=== PATIENT | female | born 1965 | race Hispanic/Latino ===

== ENCOUNTER 2021-09-07 06:44 | Day surgery (SDC) | payer MEDICAID ==
[2021-09-05 09:51] LABS: BASOPHILS % (AUTO) 0.8 % (0.0-5.0); EOSINOPHILS % (AUTO) 2.4 % (0.0-8.0); HEMATOCRIT 41.5 % (36-48); LYMPHOCYTES % (AUTO) 33.1 % (21.0-51.0); MEAN CORPUSCULAR HEMOGLOBIN 29.8 pg (27.0-33.0); MONOCYTES % (AUTO) 5.5 % (3.0-13.0); NEUTROPHILS % (AUTO) 57.9 % (40.0-77.0); PLATELET COUNT (AUTO) 304 K/uL (130-400); RED BLOOD CELL COUNT(AUTO) 4.46 MIL/uL (4.00-5.50); RED CELL DISTRIBUTION WIDTH 12.9 % (11.0-15.5)
[2021-09-05 09:57] LABS: APPEARANCE,URINE Clear (CLEAR); BILIRUBIN,URINE Negative (NEGATIVE); COLOR,URINE Yellow (YELLOW); GLUCOSE, URINE (UA) >=1000 mg/dL (NEGATIVE); KETONES,URINE Negative (NEGATIVE); LEUKOCYTE ESTERASE ,URINE Negative (NEGATIVE); NITRATE,URINE Negative (NEGATIVE); OCCULT BLOOD,URINE Negative (NEGATIVE); PROTEIN,URINE Negative (NEGATIVE); UROBILINOGEN,URINE 0.2 mg/dL (0.2-1.0)
[2021-09-05 10:00] LABS: INR 0.94 (0.85-1.15); PROTHROMBIN TIME 10.3 SEC (9.6-11.6)
[2021-09-05 10:01] LABS: CREATININE 0.7 mg/dL (0.5-1.5); POTASSIUM 4.6 mmol/L (3.5-5.1)
[2021-09-05 10:02] LABS: PARTIAL THROMBOPLASTIN TIME 28.8 SEC (26.3-35.5)
[2021-09-05 10:06] LABS: BACTERIA,URINE Rare /HPF (None Seen); RBC,URINE 0-1 /HPF (0-1); SQUAMOUS EPITHELIAL CELL,UR Rare /HPF (0-2); WBC,URINE 0-1 /HPF (0-1)
[2021-09-06 11:39] VITALS: BP 112/63
[~2021-09-07] VITALS: Ht 167.6 cm; Wt 83.6 kg
[2021-09-07] VITALS (11 sets, daily range): BP systolic 108–149; BP diastolic 60–70
[~2021-09-07 06:44] MED LIST: ARIP5TAB56 PO; ASPI-1005 PO; ATOR20TA65 PO; CYAN-35 PO; DULO30CA52 PO; EMPA1TAB7 PO; FLUT16H NASAL; INSU100I24 SQ; LEVE10006 PO; LEVE500T19 PO; LOSA25TA41 PO; METO-408 PO; MONT-39 PO; NITR0.4T50 SL; PHEN100C9 PO; TICA90TA PO; TIMO1DRO OU; TRAV2.5D OU; ZONI100C19 PO; victoza SQ
[2021-09-07] MEDS ORDERED: 0.9%NACL 1000ML 1,000 ML IV ONE (07:21)
[2021-09-07] MEDS ORDERED: IOHEXOL 350 MG/ML 100ML INFUS..BTL IV ONE (07:22)
[2021-09-07] MEDS ORDERED: LIDOCAINE HCL 400MG/20ML VIAL ONE (07:22)
[2021-09-07] MEDS ORDERED: BIVALIRUDIN 250 MG/VIAL IV ONE (07:22)
[2021-09-07] MEDS ORDERED: NITROGLYCERIN 2 MG VIAL IV ONE (07:22)
[2021-09-07] MEDS ORDERED: HEPARIN 10,000 UNIT/10ML (1,000 UNIT/ML) VIAL ONE (07:22)
[2021-09-07] MEDS ORDERED: IOHEXOL-350 50ML VIAL IV ONE (07:23)
[2021-09-07] MEDS ORDERED: SOLU-MEDROL 125MG VIAL ONE (07:48)
[2021-09-07] MEDS ORDERED: DiphenhydrAMINE HCL 50 MG/ML VIAL ONE (08:03)
[2021-09-07] MEDS ORDERED: FENTANYL CITRATE PF 50 MCG/1 ML 2ML VIAL ONE (08:16)
[2021-09-07] MEDS ORDERED: MIDAZOLAM HCL 1 MG/ML 2ML VIAL ONE (08:16)
[2021-09-07] MEDS ORDERED: DEXTROSE 50%-WATER 50 ML DISP.SYRIN IV PRN (09:30)
[2021-09-07] MEDS ORDERED: 0.9%NACL 1000ML 500 ML IV SCH (09:30)
[2021-09-07] MEDS ORDERED: GLUCAGON 1MG KIT 1 MG ML IM PRN (09:30)
== END 2021-09-07 15:31 | disposition home or self-care (01) ==
LOC: DAH 06:44
PROVIDERS: ATTEND Student in an Organized Health Care Education/Training Program
DX: I25.110 Atherosclerotic heart disease of native coronary artery with unstable angina pectoris (principal); I11.0 Hypertensive heart disease with heart failure; I50.32 Chronic diastolic (congestive) heart failure; E11.9 Type 2 diabetes mellitus without complications; E78.5 Hyperlipidemia, unspecified; K21.9 Gastro-esophageal reflux disease without esophagitis; Z79.82 Long term (current) use of aspirin; I25.2 Old myocardial infarction; E66.9 Obesity, unspecified; Z86.73 Personal history of transient ischemic attack (TIA), and cerebral infarction without residual deficits; Z79.899 Other long term (current) drug therapy; Z98.890 Other specified postprocedural states; Z90.49 Acquired absence of other specified parts of digestive tract; Z88.3 Allergy status to other anti-infective agents; Z79.01 Long term (current) use of anticoagulants; Z68.30 Body mass index [BMI] 30.0-30.9, adult; I00 Rheumatic fever without heart involvement
CPT/HCPCS: 36415; 71045; 80048; 81001; 82948 ×2; 85025; 85610; 85730; 93005; 93458; A4215; A4216; A4221; A4222; A4223 ×3; A4606; A4663; C1760; C1769; C1894 ×2; J1200; J1644; J2250; J2930; J3010; J3490 ×3; J7030; Q9965; Q9967; 99156; 99157; J0583

== ENCOUNTER 2022-07-18 05:56 | Day surgery (SDC) | payer MEDICAID ==
[2022-07-13 14:51] LABS: APPEARANCE,URINE SL CLOUDY (CLEAR); BILIRUBIN,URINE NEGATIVE (NEGATIVE); COLOR,URINE YELLOW (YELLOW); GLUCOSE, URINE (UA) >=1000 mg/dL (NEGATIVE); KETONES,URINE NEGATIVE (NEGATIVE); LEUKOCYTE ESTERASE ,URINE SMALL (NEGATIVE); NITRATE,URINE NEGATIVE (NEGATIVE); OCCULT BLOOD,URINE NEGATIVE (NEGATIVE); PH,URINE 5.5 (5.0-8.0); PROTEIN,URINE NEGATIVE (NEGATIVE); UROBILINOGEN,URINE 0.2 mg/dL (0.2-1.0)
[2022-07-13 14:56] LABS: BACTERIA,URINE Few /HPF (None Seen); RBC,URINE None Seen /HPF (0-1)
[2022-07-13 15:30] LABS: BASOPHILS % (AUTO) 0.6 % (0.0-5.0); EOSINOPHILS % (AUTO) 2.2 % (0.0-8.0); HEMATOCRIT 42.4 % (36-48); LYMPHOCYTES % (AUTO) 34.9 % (21.0-51.0); MEAN CORPUSCULAR HEMOGLOBIN 30.5 pg (27.0-33.0); MEAN CORPUSCULAR HGB CONC 32.5 g/dL (32.0-36.0); MEAN CORPUSCULAR VOLUME 93.6 fL (79-99); MONOCYTES % (AUTO) 5.7 % (3.0-13.0); NEUTROPHILS % (AUTO) 56.3 % (40.0-77.0); PLATELET COUNT (AUTO) 316 K/uL (130-400); RED BLOOD CELL COUNT(AUTO) 4.53 MIL/uL (4.00-5.50); RED CELL DISTRIBUTION WIDTH 13.4 % (11.0-15.5); WHITE BLOOD COUNT (AUTO) 10.3 K/uL (4.8-10.8)
[2022-07-13 15:40] LABS: CREATININE 0.8 mg/dL (0.5-1.5); POTASSIUM 3.7 mmol/L (3.5-5.1)
[2022-07-13 15:42] LABS: INR 0.93 (0.85-1.15); PROTHROMBIN TIME 9.8 SEC (9.6-11.6)
[2022-07-13 15:44] LABS: PARTIAL THROMBOPLASTIN TIME 28.5 SEC (26.3-35.5)
[2022-07-13 15:55] LABS: B-TYPE NATRIURETIC PEPTIDE 5 pg/mL (0-100)
[2022-07-17 09:39] VITALS: BP 160/67
[~2022-07-18] VITALS: Ht 160 cm; Wt 84.2 kg
[2022-07-18] VITALS (8 sets, daily range): BP systolic 121–139; BP diastolic 55–70
[~2022-07-18 05:56] MED LIST changes: +0.9% NACL 500ML IV.SOLN 500 ML IV SCH; +ALEN70TA80 PO; +AMIT25TA9 PO; +CHOL500050 PO; -DULO30CA52 PO; -FLUT16H NASAL; -INSU100I24 SQ; +INSU300I SQ; -LEVE10006 PO; -LOSA25TA41 PO; +METO-391 PO; -METO-408 PO; -NITR0.4T50 SL; +OMEP40CA21 PO; -TIMO1DRO OU; -TRAV2.5D OU; -ZONI100C19 PO; +ZONI100C87 PO; -victoza SQ
[2022-07-18] MEDS ORDERED: 0.9%NACL 1000ML 1,000 ML IV ONE (06:09)
[2022-07-18] MEDS ORDERED: SOLU-MEDROL 125MG VIAL ONE (06:10)
[2022-07-18] MEDS ORDERED: NITROGLYCERIN 50MG VIAL ONE (07:44)
[2022-07-18] MEDS ORDERED: VERAPAMIL HCL 2.5 MG/ML VIAL ONE (07:44)
[2022-07-18] MEDS ORDERED: IOHEXOL-350 75 ML VIAL IV ONE (07:44)
[2022-07-18] MEDS ORDERED: IOHEXOL-350 50ML VIAL IV ONE (07:44)
[2022-07-18] MEDS ORDERED: HEPARIN 10,000 UNIT/10ML (1,000 UNIT/ML) VIAL ONE (07:44)
[2022-07-18] MEDS ORDERED: LIDOCAINE HCL-MPF 2% 10ML AMP IJ ONE (07:44)
[2022-07-18] MEDS ORDERED: FENTANYL CITRATE PF 50 MCG/1 ML 2ML VIAL ONE (07:44)
[2022-07-18] MEDS ORDERED: MIDAZOLAM HCL 1 MG/ML 2ML VIAL ONE (07:45)
[2022-07-18] MEDS ORDERED: GLUCAGON 1MG KIT 1 MG ML IM PRN (09:30)
[2022-07-18] MEDS ORDERED: DEXTROSE 50%-WATER 50 ML DISP.SYRIN IV PRN (09:30)
== END 2022-07-18 11:45 | disposition home or self-care (01) ==
LOC: DAH 05:56
PROVIDERS: ATTEND Student in an Organized Health Care Education/Training Program
DX: I25.110 Atherosclerotic heart disease of native coronary artery with unstable angina pectoris (principal); I11.0 Hypertensive heart disease with heart failure; I50.32 Chronic diastolic (congestive) heart failure; E11.51 Type 2 diabetes mellitus with diabetic peripheral angiopathy without gangrene; E78.5 Hyperlipidemia, unspecified; I25.2 Old myocardial infarction; K21.9 Gastro-esophageal reflux disease without esophagitis; E66.9 Obesity, unspecified; G24.01 Drug induced subacute dyskinesia; Z90.49 Acquired absence of other specified parts of digestive tract; Z98.890 Other specified postprocedural states; Z88.3 Allergy status to other anti-infective agents; Z91.041 Radiographic dye allergy status; Z86.73 Personal history of transient ischemic attack (TIA), and cerebral infarction without residual deficits; Z79.01 Long term (current) use of anticoagulants; Z79.899 Other long term (current) drug therapy; Z68.30 Body mass index [BMI] 30.0-30.9, adult
CPT/HCPCS: 80048; 83880; 84703; 85025; 85610; 85730; 81001; 36415; 71045; 93005; 93460; 82948 ×2; C1769; C1894 ×3; Q9965; J3010; J7030; J2930; J1644 ×2; J2250; J3490 ×3; Q9967; A4215; A4222; A4221; A4663; A4216; A4606; A4223 ×3; 99156; 99157

== ENCOUNTER → 2024-07-21 | Outpatient (CLI) | payer MEDICAID ==
[~2024-07-21] MED LIST changes: -0.9% NACL 500ML IV.SOLN 500 ML IV SCH; +ARIP5TAB51 PO; -ARIP5TAB56 PO; +DIPH50 PO; +FAMO-136 PO; -TICA90TA PO
[2024-07-21 13:29] LABS: ALBUMIN 3.5 g/dL (3.5-5.0); BILIRUBIN,TOTAL 0.4 mg/dL (0.2-1.0); CREATININE 1.1 mg/dL (0.5-1.0); POTASSIUM 3.7 mmol/L (3.5-5.1); TOTAL PROTEIN, SERUM 8.1 g/dL (6.0-8.3)
== END | disposition home or self-care (01) ==
LOC: LAB 11:47
PROVIDERS: ATTEND Student in an Organized Health Care Education/Training Program
DX: I25.10 Atherosclerotic heart disease of native coronary artery without angina pectoris (principal); R07.9 Chest pain, unspecified
CPT/HCPCS: 36415; 80053

== ENCOUNTER 2024-07-23 12:28 | Emergency (ER) | payer MEDICAID ==
[~2024-07-23] VITALS: Ht 167.6 cm; Wt 70.8 kg
[~2024-07-23 12:28] MED LIST changes: -DIPH50 PO; -DiphenhydrAMINE HCL 50 MG/ML VIAL ONE; -FAMO-136 PO; -IOHEXOL 350 MG/ML 100ML INFUS..BTL IV ONE; -Solu-medROL 125MG VIAL ONE
[2024-07-23] MEDS: DiphenhydrAMINE HCL 50 MG/ML VIAL IV ONE (12:47)
[2024-07-23] MEDS: FAMOTIDINE 20MG VIAL IV ONE (12:47)
[2024-07-23] MEDS ORDERED: DIPH50 PO (13:51)
[2024-07-23] MEDS ORDERED: FAMO-136 PO (13:51)
[2024-07-23] MEDS: EPINEPHrine PF 1MG (1:1,000) 1 MG/ML AMP SQ ONE (14:30)
[2024-07-23 14:35] VITALS: BP 115/63; PULSE 79; RESP 16; TEMP 98.1; O2SAT 99
== END 2024-07-23 14:36 | disposition home or self-care (01) ==
LOC: EDH 12:28
DX: T88.6XXA Anaphylactic reaction due to adverse effect of correct drug or medicament properly administered, initial encounter (principal); T50.8X5A Adverse effect of diagnostic agents, initial encounter; L50.9 Urticaria, unspecified; Z91.041 Radiographic dye allergy status; Z79.82 Long term (current) use of aspirin; Z79.899 Other long term (current) drug therapy; Z79.84 Long term (current) use of oral hypoglycemic drugs; Y92.89 Other specified places as the place of occurrence of the external cause
CPT/HCPCS: 99284; 96374; 96375; J1200; S0028; J3490

== ENCOUNTER → 2024-07-23 | Outpatient (CLI) | payer MEDICAID ==
[~2024-07-23] MED LIST changes: +DiphenhydrAMINE HCL 50 MG/ML VIAL ONE; +IOHEXOL 350 MG/ML 100ML INFUS..BTL IV ONE; +Solu-medROL 125MG VIAL ONE
== END | disposition home or self-care (01) ==
LOC: RAH 09:38
PROVIDERS: ATTEND Student in an Organized Health Care Education/Training Program
DX: I25.10 Atherosclerotic heart disease of native coronary artery without angina pectoris (principal); R07.9 Chest pain, unspecified
CPT/HCPCS: 75574; J1200; J2919; Q9967

== ENCOUNTER → 2025-08-25 | Outpatient (CLI) | payer MEDICAID ==
[~2025-08-25] VITALS: Ht 167.6 cm; Wt 73.7 kg
[~2025-08-25] MED LIST changes: +AMIT25TA21 PO; -AMIT25TA9 PO; +DAPA1TAB5 PO; +DIPH50CA38 PO; +DULO60CA64 PO; +FAMO-136 PO; +FAMO20TA8 PO; +FERR324T9 PO; +FLUT1DIS IH; +GABA-529 PO; +LOSA25TA41 PO; +METO-408 PO
[2025-08-25 09:09] VITALS: BP 132/58; PULSE 66; RESP 17; TEMP 97.9
[2025-08-25 09:14] LABS: IMMATURE GRANULOCYTE ABSOLUTE 0.01 K/uL (0-1); NUCLEATED RED BLOOD CELLS 0.0 % (0.0-0.19); PLATELET COUNT (AUTO) 300 K/uL (130-400); RED BLOOD CELL COUNT(AUTO) 3.93 MIL/uL (4.00-5.50); RED CELL DISTRIBUTION WIDTH 14.5 % (11.0-15.5); WHITE BLOOD COUNT (AUTO) 6.4 K/uL (4.8-10.8)
[2025-08-25 09:25] LABS: CREATININE 0.8 mg/dL (0.5-1.0); GLOMERULAR FILTR. RATE CALC 85.0 mL/min (>90); GLUCOSE,RANDOM 118.0 mg/dL (70-105); SODIUM SERUM 140.0 mmol/L (136-145); UREA NITROGEN, BLOOD 18.0 mg/dL (7-18)
[2025-08-25 09:29] LABS: INR <= 0.93 (0.85-1.15)
[2025-08-25 09:40] LABS: APPEARANCE,URINE CLEAR (CLEAR); GLUCOSE, URINE (UA) >=1000 mg/dL (NEGATIVE); LEUKOCYTE ESTERASE ,URINE NEGATIVE Leu/uL (NEGATIVE); NITRATE,URINE NEGATIVE (NEGATIVE); OCCULT BLOOD,URINE NEGATIVE (NEGATIVE)
[2025-08-25 09:48] LABS: ADD UA MICROSCOPIC YES
--- NOTE | 2025-08-25 14:04 | EKG ---
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
--- NOTE | 2025-08-26 08:15 | HMCIMG ---
EXAM: CR Chest, 1 View. CLINICAL HISTORY: PRE OP COMPARISON: None provided. FINDINGS: LUNGS: The lungs show no infiltrate or other acute finding. PLEURAL SPACES: No pleural effusion or pneumothorax. MEDIASTINUM: Cardiac size and mediastinal contours within normal limits. BONES: No acute osseous abnormality. IMPRESSION: 1. No acute cardiopulmonary findings. /[place]
--- NOTE | 2025-08-26 09:56 | NUR ---
RE: IV CONTRAST ALLERGY INFORMED DR Samantha SHERMAN OF PATIENT'S IV CONTRAST ALLERGY. 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
== END | disposition home or self-care (01) ==
LOC: EDSTATUS 08:00 → DAH 08:34
PROVIDERS: ATTEND Student in an Organized Health Care Education/Training Program
DX: Z01.818 Encounter for other preprocedural examination (principal); I44.7 Left bundle-branch block, unspecified; I21.9 Acute myocardial infarction, unspecified; I25.10 Atherosclerotic heart disease of native coronary artery without angina pectoris; R07.9 Chest pain, unspecified
CPT/HCPCS: 36415; 71045; 80048; 81001; 83880; 85025; 85610; 85730; 93005